=== PATIENT | female | born 1955 | race African-American/Black ===

== ENCOUNTER 2023-03-13 04:35 | Emergency (ER) | payer MEDICARE, OTHER ==
[~2023-03-13] VITALS: Ht 162.6 cm; Wt 69.0 kg
[2023-03-13 04:42] VITALS: O2SAT 98
[2023-03-13 06:33] LABS: BASOPHILS % 0.7 % (0.0-2.0); EOSINOPHILS % 1.5 % (0.0-5.0); HEMOGLOBIN. 15.5 g/dL (12.0-16.0); LYMPHOCYTES % 38.5 % (20.0-50.0); MEAN CORPUSCULAR HEMOGLOBIN 28.2 pg (28.0-32.0); MEAN CORPUSCULAR VOLUME 83.6 fL (81.0-99.0); MEAN PLATELET VOLUME 9.3 fl (7.4-10.4); MONOCYTES % 6.9 % (2.0-8.0); NEUTROPHILS % 52.4 % (40.0-76.0); PLATELET 229 x1000/uL (130-400); RED BLOOD CELL COUNT 5.51 mill/uL (4.2-5.4); RED CELL DISTRIBUTION WIDTH 14.1 % (11.6-14.6)
[2023-03-13 06:39] LABS: CHLORIDE 106 mEq/L (98-107)
[2023-03-13 06:49] LABS: CREATINE KINASE 138 IU/L (26-192)
[2023-03-13] MEDS ORDERED: AZITHROMYCIN 500MG/250ML 250 ML IV NR (07:30)
[2023-03-13] MEDS ORDERED: CEFTRIAXONE 1GM PREMIX 50 ML IV NR (07:30)
[2023-03-13] MEDS ORDERED: KETOROLAC 30MG/ML VIAL IV NR (08:30)
[2023-03-13 08:38] LABS: CLARITY URINE CLEAR (CLEAR); COLOR URINE YELLOW (YELLOW)
[2023-03-13 08:42] LABS: PH URINE 6.5 (4.5-8.0); PROTEIN URINE NEGATIVE (NEGATIVE)
[2023-03-13 08:43] LABS: KETONES URINE 1+ (NEGATIVE); LEUKOCYTE ESTERASE URINE NEGATIVE (NEGATIVE); NITRITE URINE NEGATIVE (NEGATIVE); OCCULT BLOOD URINE TRACE (NEGATIVE)
[2023-03-13] MEDS ORDERED: ACETAMINOPHEN 325MG TABLET PO NR (13:45)
[2023-03-13 17:05] VITALS: BP 148/96; PULSE 78; RESP 17; TEMP 98.1
== END 2023-03-13 18:22 | disposition left against medical advice (07) ==
LOC: ER 04:38 → CANBEDREQ 17:57 → ER 18:22
DX: R53.1 Weakness (principal); M54.2 Cervicalgia; J44.1 Chronic obstructive pulmonary disease with (acute) exacerbation; I10 Essential (primary) hypertension
CPT/HCPCS: 80053; 81003; 82550; 85025; 84484; 36415; 71045; 70450; 93005; 96368; 96365; 96375; 99285; J0456; J0696; J1885; Z7610 ×2